=== PATIENT | female | born 1995 | race American Indian/Alaskan Native ===

== ENCOUNTER 2020-12-15 17:44 | Emergency (ER) | payer SELFPAY ==
[~2020-12-15 17:44] MED LIST: HYDROmorphone 1 MG/1 ML INJ IV ONE
--- NOTE | 2020-12-15 18:37 | Event Note ---
ED Screening Note ED Screening Note: Patient is a 25-year-old female presents emergency room with complaints of a fall down 13 steps that occurred just prior to arrival She states that she was in a [place] and believes she just tripped and fell She is complaining of left middle finger pain and nail avulsion, left ankle pain and right upper quadrant abdominal pain She is unsure if she hit her head pmhx HIV No allergies to medications Patient appears drowsy on exam I asked patient if she had anything to drink or uses any drugs and she states no She is able to answer questions but is drowsy This initial assessment/diagnostic orders/clinical plan/treatment(s) is/are subject to change based on patients health status, clinical progression and re- assessment by fellow clinical providers in the ED. Further treatment and workup at subsequent clinical providers discretion. Patient/guardian urged not to elope from the ED as their condition may be serious if not clinically assessed and managed. Initial orders include: labs, xr, ct
[2020-12-15] MEDS ORDERED: ONDANSETRON 4 MG/2 ML INJ ONE (18:39)
[2020-12-15] MEDS ORDERED: MORPHINE 4 MG/1 ML INJ ONE (18:40)
[2020-12-15] MEDS ORDERED: SODIUM CHLORIDE 0.9% 1000 ML 1,000 ML IV ONE (18:42)
[2020-12-15 18:50] LABS: Basophils # (Auto) 0.2 K/mm3 (0.0-0.1); Basophils % (Auto) 2.5 % (0.0-1.8); Eosinophils % (Auto) 0.1 % (0.0-4.3); Hematocrit 36.5 % (30.3-42.9); Hemoglobin 12.2 gm/dl (10.1-14.3); Lymphocytes # (Auto) 1.9 K/mm3 (1.2-5.4); Lymphocytes % (Auto) 22.3 % (13.4-35.0); Mean Corpuscular HGB Conc 33 % (30-34); Mean Corpuscular Volume 88 fl (79-97); Monocytes # (Auto) 0.6 K/mm3 (0.0-0.8); Monocytes % (Auto) 6.8 % (0.0-7.3); Platelet Count 242 K/mm3 (140-440); Red Blood Count 4.18 M/mm3 (3.65-5.03); Red Cell Distribution Width 15.9 % (13.2-15.2)
[2020-12-15 19:06] LABS: Alanine Aminotransferase 14 units/L (7-56); Albumin 4.3 g/dL (3.9-5); Blood Urea Nitrogen 12 mg/dL (7-17); Hemolysis Index 2
[2020-12-15 19:07] LABS: BUN/Creatinine Ratio 24
[2020-12-15] MEDS ORDERED: MORPHINE 4 MG/1 ML INJ IV ONE (19:13)
[2020-12-15] MEDS ORDERED: ONDANSETRON 4 MG/2 ML INJ IV ONE (19:13)
[2020-12-15] MEDS ORDERED: BUPIVACAINE/PF (0.25%) 2.5 MG/ML 30 ML VIAL INFILTRATI NR (19:15)
--- NOTE | 2020-12-15 19:18 | Emergency Department Report ---
ED General Adult HPI - General Chief complaint: Multiple Trauma Stated complaint: trauma PUI?: No Time Seen by Provider: 12/15/20 18:32 Source: patient, RN notes reviewed Mode of arrival: Stretcher Limitations: Physical Limitation, Other (Patient anxious and intoxicated) - History of Present Illness Initial comments: The patient was evaluated in the emergency department for symptoms described in the history of present illness. He/she was evaluated in the context of the global COVID-19 pandemic, which necessitated consideration that the patient might be at risk for infection with the virus that causes COVID-19. [facility] protocols and algorithms that pertain to the evaluation of patients at risk for COVID-19 are in a state of rapid change based on information released by regulatory bodies including the CDC and federal and state organizations. These policies and algorithms were followed during the patient's care in the emergency department. Please note that these policies, procedures and recommendations changed on a rapid basis. The patient is a 25-year-old female, who presents to the ER after reported mec hanical fall down 13 stairs. The patient reported that she slipped and lost her footing. The patient is called as a code trauma from the waiting room, secondary to blunt head injury, inability to recall all events, and hypotension. On primary survey: Airway is patent and intact. Breath sounds are clear to auscultation bilaterally. Circulation: 2+ pulses noted in the bilateral upper and lower extremities. Initial blood pressure 70 systolic, repeat blood pressure in the resuscitation bay 120 mmHg systolic. Disability: Patient awake to name, moves 4 extremities, eyes open spontaneously, and is somewhat confused. GCS of 14. Cervical collar placed during primary survey with C-spine immobilization. Exposure: Chaperoned by nurse Fallon Sagastume. No evidence of penetrating injury. Left fingertip injury. Left dorsal lateral foot ecchymosis. Diffuse left leg pain and tenderness. Secondary survey: Left fingertip avulsion injury and partial laceration. Left lateral/dorsal foot ecchymosis and tenderness. Diffuse left leg tenderness. -: Sudden Location: back, abdomen, left, upper extremity, lower extremity Radiation: non-radiation Quality: aching Consistency: constant Improves with: rest Worsens with: movement - Related Data Previous Rx's Medication Instructions Recorded Last Taken Type Acetaminophen [Non-Aspirin Extra 500 mg PO Q6HR PRN #30 tablet 12/16/20 Unknown Rx Strength] Ibuprofen [Motrin] 600 mg PO Q8H PRN #30 tablet 12/16/20 Unknown Rx Morphine Sulfate [Morphine Sulfate 7.5 mg PO Q6HR PRN #10 tablet 12/16/20 Unknown Rx IR] Ondansetron [Zofran Odt] 4 mg PO Q8HR PRN #20 tab.rapdis 12/16/20 Unknown Rx cephALEXin [Keflex] 500 mg PO Q6HR #28 capsule 12/16/20 Unknown Rx Allergies Allergy/AdvReac Type Severity Reaction Status Date / Time No Known Allergies Allergy Verified 12/15/20 18:32 ED Review of Systems ROS: Stated complaint: FINGER/FOOT INJURY Other details as noted in HPI Constitutional: denies: fever Respiratory: denies: cough Cardiovascular: denies: chest pain Gastrointestinal: abdominal pain Musculoskeletal: back pain Skin: lesions Psychiatric: anxiety ED Past Medical Hx - Medications Home Medications: Home Medications Medication Instructions Recorded Confirmed Last Taken Type Acetaminophen [Non-Aspirin Extra 500 mg PO Q6HR PRN #30 tablet 12/16/20 Unknown Rx Strength] Ibuprofen [Motrin] 600 mg PO Q8H PRN #30 tablet 12/16/20 Unknown Rx Morphine Sulfate [Morphine Sulfate 7.5 mg PO Q6HR PRN #10 tablet 12/16/20 Unknown Rx IR] Ondansetron [Zofran Odt] 4 mg PO Q8HR PRN #20 tab.rapdis 12/16/20 Unknown Rx cephALEXin [Keflex] 500 mg PO Q6HR #28 capsule 12/16/20 Unknown Rx ED Physical Exam - General Limitations: Physical Limitation General appearance: appears intoxicated, anxious - Head Head exam: Present: atraumatic, normocephalic - Eye Eye exam: Present: normal appearance, PERRL, EOMI. Absent: nystagmus - ENT ENT exam: Present: normal exam, normal orophraynx, mucous membranes moist, TM's normal bilaterally, normal external ear exam, other (There is no nasal septal hematoma. There is no hemotympanum) - Neck Neck exam: Present: normal inspection, other (Cervical collar is in place.) - Respiratory Respiratory exam: Present: normal lung sounds bilaterally. Absent: respiratory distress, wheezes, rales, rhonchi, stridor, decreased breath sounds - Cardiovascular Cardiovascular Exam: Present: regular rate, normal rhythm, normal heart sounds. Absent: bradycardia, tachycardia, irregular rhythm, systolic murmur, diastolic murmur, rubs, gallop - GI/Abdominal GI/Abdominal exam: Present: soft, tenderness. Absent: distended, guarding, rebound, rigid, pulsatile mass - Rectal Rectal exam: Present: normal inspection, normal rectal tone, other (Chaperoned by nurse Fallon Sagastume) - External exam: Present: normal external exam - Extremities Exam Extremities exam: Present: tenderness (There is left lateral foot tenderness. The left leg appears to be shortened and internally rotated. There is diffuse left thigh, left distal lower extremity tenderness), normal capillary refill, other (2+ pulses noted in the bilateral upper and lower extremities. The bilateral upper extremities are nontender, with exception of the left middle finger.) - Back Exam Back exam: Present: normal inspection, paraspinal tenderness. Absent: CVA tenderness (R), CVA tenderness (L) - Neurological Exam Neurological exam: Present: alert, other (No facial droop. Tongue midline. Extraocular movements intact bilaterally. Facial sensation intact to light touch in V1, V2, V3 distribution bilaterally. 5 and a 5 strength in 4 extremities. Sensation intact to light touch in 4 extremities.) - Psychiatric Psychiatric exam: Present: anxious - Skin Skin exam: Present: warm, ecchymosis (There is ecchymosis noted to the dorsal lateral aspect of the left foot.), other (Abrasion, ecchymosis and laceration noted to the dorsal aspect of the left middle finger.) ED Course Vital Signs 12/15/20 12/15/20 12/15/20 18:27 18:42 18:45 Temperature 98.9 F Pulse Rate 69 87 86 Respiratory 12 26 H 20 Rate Blood Pressure 95/56 Blood Pressure 78/38 [Left] O2 Sat by Pulse 98 99 100 Oximetry 12/15/20 12/15/20 12/15/20 18:46 19:53 19:55 Temperature 98.6 F Pulse Rate 70 Respiratory 22 18 16 Rate Blood Pressure 93/57 Blood Pressure 93/57 [Left] O2 Sat by Pulse 100 99 Oximetry 12/15/20 12/15/20 12/15/20 20:01 20:15 20:23 Temperature Pulse Rate 76 70 Respiratory 18 19 18 Rate Blood Pressure 93/57 110/66 Blood Pressure [Left] O2 Sat by Pulse 98 99 Oximetry 12/15/20 12/15/20 12/15/20 20:31 20:45 21:01 Temperature Pulse Rate 77 74 72 Respiratory 13 15 Rate Blood Pressure 103/65 109/73 113/63 Blood Pressure [Left] O2 Sat by Pulse 100 100 100 Oximetry 12/15/20 12/15/20 12/15/20 21:15 21:31 21:45 Temperature Pulse Rate 70 70 74 Respiratory 12 20 14 Rate Blood Pressure 121/61 121/61 121/61 Blood Pressure [Left] O2 Sat by Pulse 100 100 100 Oximetry 12/15/20 12/15/20 12/15/20 22:01 22:15 22:31 Temperature Pulse Rate 76 78 107 H Respiratory 13 10 L 15 Rate Blood Pressure 121/61 121/61 121/61 Blood Pressure [Left] O2 Sat by Pulse 100 Oximetry 12/15/20 12/15/20 12/15/20 22:45 23:01 23:08 Temperature Pulse Rate 84 84 Respiratory 16 12 18 Rate Blood Pressure 121/61 121/61 Blood Pressure [Left] O2 Sat by Pulse Oximetry 12/15/20 12/15/20 12/15/20 23:15 23:31 23:38 Temperature Pulse Rate 86 80 Respiratory 22 13 18 Rate Blood Pressure 121/61 121/61 Blood Pressure [Left] O2 Sat by Pulse Oximetry 12/15/20 12/16/20 12/16/20 23:45 00:01 00:15 Temperature Pulse Rate 86 77 74 Respiratory 13 16 14 Rate Blood Pressure 121/61 121/61 121/61 Blood Pressure [Left] O2 Sat by Pulse Oximetry 12/16/20 12/16/20 12/16/20 00:31 00:42 01:08 Temperature Pulse Rate 76 Respiratory 18 18 Rate Blood Pressure 121/61 96/61 Blood Pressure [Left] O2 Sat by Pulse Oximetry 12/16/20 12/16/20 12/16/20 01:12 01:21 02:10 Temperature 97.6 F Pulse Rate 70 Respiratory 18 18 Rate Blood Pressure 107/72 Blood Pressure 106/69 [Left] O2 Sat by Pulse 100 Oximetry - Reevaluation(s) Reevaluation #1: 12/16/20 00:42 Patient is reassessed. She is now clinically sober. Cervical collar was discontinued. CT scan of the brain, cervical spine, chest abdomen pelvis negative for acute traumatic findings. Patient states she is aware of her pulmonary abnormalities, and reports that she has a history of COPD. She states that she is also aware of her adenopathy. X-ray of the lower extremity demonstrates possible left cuboid fracture. X-ray of the left finger suggests a tuft fracture. She was given pain medication, initially placed in a posterior splint, made nonweightbearing, and instructed to follow-up with orthopedics for a fingertip injury, as well as cuboid injury. Please reference procedure note for left upper extremity injury. Patient did avulse nail from the dorsal aspect of her left middle finger. We will discharge patient with crutches, nonweightbearing status, left upper extremity splint, antibiotics, pain medication. Extensive discussion had regarding return precautions. The patient has articulated understanding. Return precautions are reviewed. All questions answered. In addition, on multiple repeat evaluations, patient drinking without difficulty, and is noted to be playing on [employer] on her cellular phone. In addition, upon final reevaluation, muscular compartments in the upper and lower extremities have soft, and the patient does not have significant pain with passive range of motion. She has point tenderness to the lateral dorsal aspect of her left foot, and point tenderness to her left middle fingertip. She is 5 out of 5 strength in 4 extremities, and sensation is intact to light touch in 4 extremities. She is exhibiting decision-making capacity, and indic ates that her significant other can pick her up. She understands that she will need to follow-up closely with an outpatient primary care doctor and/or orthopedics. She is already aware of CT chest abnormalities, from her prior hospitalization, and will also follow-up with a primary care doctor regarding her adenopathy. 12/16/20 00:47 12/16/20 16:19 - Laceration /Wound Repair Left Medial Distal Finger Wound Location: upper extremity Wound Length (cm): 0 (0.5 cm) Wound's Depth, Shape: irregular, contused tissue Wound Explored: clean Irrigated w/ Saline (ccs): 500 Betadine Prep?: Yes Anesthesia: 0.5% Sensorcaine Volume Anesthetic (ccs): 5 Wound Debrided: minimal Wound Repaired With: sutures Suture Size/Type: 5:0 Number of Sutures: 1 Layer Closure?: No Sterile Dressing Applied?: No Progress: The left middle finger is prepped with typical aseptic fashion. Using a 26-gauge needle, 3 cc of bupivacaine are infiltrated and injected via a thecal block. The patient endorsed persistent pain and sensation at her distal fingertip, and therefore, we converted to a ring block. Subsequent injections were made on the lateral and medial aspect of the middle finger, as well as the dorsal aspect. Each injection was approximately 1 cc of bupivacaine. Even after the ring block, the patient endorsed persistent sensation to pain at the fingertip. Then, the fingertip was soaked in 4% lidocaine for about 20 minutes. The patient then stated that she had some, but not complete analgesia of the fingertip. However, the patient was able to tolerate irrigation. The fingertip was copiously irrigated with sterile saline, and Betadine, 500 cc of sterile saline, at adequate pressure. The fingertip was examined, no foreign bodies were noted, and it appears that the nail is completely avulsed. A single interrupted monofilament 5-0 suture was placed on the medial aspect of the laceration. Then, foil was inserted into the nail crease, to provide a buttress. Xeroform gauze was then applied in a circumferential in the linear fashion to the distal fingertip. Then, 4 x 4 was applied to the fingertip. Then, a finger splint was applied to the fingertip. The patient tolerated the procedure adequately. - Orthopedic Splinting/Casting Injury #1 Side: left Upper Extremity Injury Location: finger Upper Extremity Immobilizer: finger (other) ED Medical Decision Making - Lab Data Result diagrams: 12/15/20 18:42 12/15/20 18:42 Vital Signs 12/15/20 12/15/20 12/15/20 18:27 18:42 18:45 Temperature 98.9 F Pulse Rate 69 87 86 Respiratory 12 26 H 20 Rate Blood Pressure 95/56 Blood Pressure 78/38 [Left] O2 Sat by Pulse 98 99 100 Oximetry 12/15/20 12/15/20 12/15/20 18:46 19:53 19:55 Temperature 98.6 F Pulse Rate 74 Respiratory 22 18 14 Rate Blood Pressure Blood Pressure 93/57 [Left] O2 Sat by Pulse 100 97 Oximetry Lab Results 12/15/20 12/15/20 12/15/20 Range/Units 18:42 18:42 18:42 WBC 8.3 (4.5-11.0) K/mm3 RBC 4.18 (3.65-5.03) M/mm3 Hgb 12.2 (10.1-14.3) gm/dl Hct 36.5 (30.3-42.9) % MCV 88 (79-97) fl MCH 29 (28-32) pg MCHC 33 (30-34) % RDW 15.9 H (13.2-15.2) % Plt Count 242 (140-440) K/mm3 Lymph % (Auto) 22.3 (13.4-35.0) % [place] % (Auto) 6.8 (0.0-7.3) % Eos % (Auto) 0.1 (0.0-4.3) % Baso % (Auto) 2.5 H (0.0-1.8) % Lymph # (Auto) 1.9 (1.2-5.4) K/mm3 [place] # (Auto) 0.6 (0.0-0.8) K/mm3 Eos # (Auto) 0.0 (0.0-0.4) K/mm3 Baso # (Auto) 0.2 H (0.0-0.1) K/mm3 Seg Neutrophils % 68.3 (40.0-70.0) % Seg Neutrophils # 5.7 (1.8-7.7) K/mm3 PT 15.4 H (12.2-14.9) Sec. INR 1.17 H (0.87-1.13) APTT 33.5 (24.2-36.6) Sec. Sodium 137 (137-145) mmol/L Potassium 3.5 L (3.6-5.0) mmol/L Chloride 103.3 (98-107) mmol/L Carbon Dioxide 23 (22-30) mmol/L Anion Gap 14 mmol/L BUN 12 (7-17) mg/dL Creatinine 0.5 L (0.6-1.2) mg/dL Estimated GFR > 60 ml/min BUN/Creatinine Ratio 24 % Glucose 120 H (65-100) mg/dL Calcium 9.0 (8.4-10.2) mg/dL Total Bilirubin 0.50 (0.1-1.2) mg/dL AST 22 (5-40) units/L ALT 14 (7-56) units/L Alkaline Phosphatase 47 (35-129) units/L Total Protein 8.7 H (6.3-8.2) g/dL Albumin 4.3 (3.9-5) g/dL Albumin/Globulin Ratio 1.0 % HCG, Qual (Negative) Salicylates (2.8-20.0) mg/dL Acetaminophen (10.0-30.0) ug/mL Plasma/Serum Alcohol (0-0.07) % 12/15/20 12/15/20 12/15/20 Range/Units 18:42 18:42 18:42 WBC (4.5-11.0) K/mm3 RBC (3.65-5.03) M/mm3 Hgb (10.1-14.3) gm/dl Hct (30.3-42.9) % MCV (79-97) fl MCH (28-32) pg MCHC (30-34) % RDW (13.2-15.2) % Plt Count (140-440) K/mm3 Lymph % (Auto) (13.4-35.0) % [place] % (Auto) (0.0-7.3) % Eos % (Auto) (0.0-4.3) % Baso % (Auto) (0.0-1.8) % Lymph # (Auto) (1.2-5.4) K/mm3 [place] # (Auto) (0.0-0.8) K/mm3 Eos # (Auto) (0.0-0.4) K/mm3 Baso # (Auto) (0.0-0.1) K/mm3 Seg Neutrophils % (40.0-70.0) % Seg Neutrophils # (1.8-7.7) K/mm3 PT (12.2-14.9) Sec. INR (0.87-1.13) APTT (24.2-36.6) Sec. Sodium (137-145) mmol/L Potassium (3.6-5.0) mmol/L Chloride (98-107) mmol/L Carbon Dioxide (22-30) mmol/L Anion Gap mmol/L BUN (7-17) mg/dL Creatinine (0.6-1.2) mg/dL Estimated GFR ml/min BUN/Creatinine Ratio % Glucose (65-100) mg/dL Calcium (8.4-10.2) mg/dL Total Bilirubin (0.1-1.2) mg/dL AST (5-40) units/L ALT (7-56) units/L Alkaline Phosphatase (35-129) units/L Total Protein (6.3-8.2) g/dL Albumin (3.9-5) g/dL Albumin/Globulin Ratio % HCG, Qual (Negative) Salicylates < 0.3 L (2.8-20.0) mg/dL Acetaminophen 5.0 L (10.0-30.0) ug/mL Plasma/Serum Alcohol < 0.01 (0-0.07) % 12/15/20 Range/Units 18:42 WBC (4.5-11.0) K/mm3 RBC (3.65-5.03) M/mm3 Hgb (10.1-14.3) gm/dl Hct (30.3-42.9) % MCV (79-97) fl MCH (28-32) pg MCHC (30-34) % RDW (13.2-15.2) % Plt Count (140-440) K/mm3 Lymph % (Auto) (13.4-35.0) % [place] % (Auto) (0.0-7.3) % Eos % (Auto) (0.0-4.3) % Baso % (Auto) (0.0-1.8) % Lymph # (Auto) (1.2-5.4) K/mm3 [place] # (Auto) (0.0-0.8) K/mm3 Eos # (Auto) (0.0-0.4) K/mm3 Baso # (Auto) (0.0-0.1) K/mm3 Seg Neutrophils % (40.0-70.0) % Seg Neutrophils # (1.8-7.7) K/mm3 PT (12.2-14.9) Sec. INR (0.87-1.13) APTT (24.2-36.6) Sec. Sodium (137-145) mmol/L Potassium (3.6-5.0) mmol/L Chloride (98-107) mmol/L Carbon Dioxide (22-30) mmol/L Anion Gap mmol/L BUN (7-17) mg/dL Creatinine (0.6-1.2) mg/dL Estimated GFR ml/min BUN/Creatinine Ratio % Glucose (65-100) mg/dL Calcium (8.4-10.2) mg/dL Total Bilirubin (0.1-1.2) mg/dL AST (5-40) units/L ALT (7-56) units/L Alkaline Phosphatase (35-129) units/L Total Protein (6.3-8.2) g/dL Albumin (3.9-5) g/dL Albumin/Globulin Ratio % HCG, Qual Negative (Negative) Salicylates (2.8-20.0) mg/dL Acetaminophen (10.0-30.0) ug/mL Plasma/Serum Alcohol (0-0.07) % - Radiology Data Radiology results: pending, report reviewed, image reviewed Left femur radiograph, 4 views HISTORY: Pain COMPARISON: None FINDINGS: No acute fracture or malalignment. No focal soft tissue abnormality. IMPRESSION: No acute process Signer Name: Geo Leal MD Signed: 12/15/2020 8:22 PM AP PELVIS SINGLE VIEW INDICATION / CLINICAL INFORMATION: left hip, leg pain. COMPARISON: None available. FINDINGS: AP view of the pelvis is unremarkable. No pelvic fracture. Both hips appear intact. Contrast is present within the urinary bladder from prior CT. IMPRESSION: No pelvic fracture. Signer Name: Elizabeth Yousif MD Signed: 12/15/2020 8:23 PM Workstation Name: [id number] Left tibia-fibula radiograph, 2 views HISTORY: Pain COMPARISON: None FINDINGS: No acute fracture or malalignment. No focal soft tissue abnormality. IMPRESSION: No acute process Signer Name: Geo Leal MD Signed: 12/15/2020 8:21 PM Workstation Name: [id number] CT chest w con, CT abdomen pelvis w con INDICATION / CLINICAL INFORMATION: fall down 13 steps. TECHNIQUE: Axial CT images were obtained through the chest, abdomen, pelvis after IV contrast. All CT scans at this location are performed using CT dose reduction for ALARA by means of automated exposure control. COMPARISON: None available. FINDINGS: CHEST: THORACIC AORTA: No significant abnormality. PULMONARY ARTERIES: No gross pulmonary embolus. HEART: No significant abnormality. MEDIASTINUM / DAYANARA: No significant abnormality. No significant thoracic lymphadenopathy. LUNGS/PLEURA: Multiple lung cysts are present with large areas of geographic lucency within the lingula and right middle lobe and bilateral lung bases, may reflect air trapping. There is scarring in the right upper lung. No acute airspace consolidation. No pleural effusion or pneumothorax. OTHER FINDINGS: Shotty bilateral prominent axillary lymph nodes, likely reactive. ABDOMEN/PELVIS: LIVER: No significant abnormality GALLBLADDER/BILIARY TREE: No significant abnormality PANCREAS: No significant abnormality SPLEEN: No significant abnormality ADRENALS: No significant abnormality KIDNEYS / URETER: No significant abnormality URINARY BLADDER: No significant abnormality REPRODUCTIVE ORGANS: No significant abnormality STOMACH / BOWEL: No significant abnormality. The appendix is normal in caliber. LYMPH NODES: No significant adenopathy. VASCULATURE: No significant abnormality. OTHER: No free air, free fluid, or focal fluid collection is identified. SKELETAL SYSTEM: No acute osseous findings. IMPRESSION: 1. No evidence of acute traumatic abnormality of the chest, abdomen, or pelvis. 2. Multiple thin-walled lung cysts with large areas of geographic lucency seen throughout the lungs, may reflect air trapping. These findings are somewhat nonspecific though may be seen with lymphangiole iomyomatosis or less likely lymphocytic interstitial pneumonitis. Consider nonemergent pulmonary consultation, as clinically indicated. 3. Other incidental findings as above. Signer Name: Geo Leal MD Signed: 12/15/2020 7:16 PM Workstation Name: [id number] CT cervical spine wo con INDICATION / CLINICAL INFORMATION: 25 years Female; fall down 13 steps. TECHNIQUE: Axial CT images of the cervical spine were obtained. Sagittal and coronal reformatted images were produced. All CT scans at this location are performed using CT dose reduction for ALARA by means of automated exposure control. COMPARISON: None available. FINDINGS: POST- SURGICAL CHANGES: None. ALIGNMENT: There is no significant spondylolisthesis involving cervical spine at. VERTEBRAE: There is no CT evidence of acute fracture. INTRAVERTEBRAL DISCS: The intervertebral disc spaces are fairly well- maintained without CT evidence of significant bony spinal stenosis. PARASPINAL SOFT TISSUES: No prevertebral soft tissue fluid collections are identified. There are multiple cervical lymph nodes including within the supraclavicular regions and along the jugular chains with the largest measuring approximately 0.8 cm in short axis dimension. These nodes are nonspecific and correlation would be needed at. There are fibrotic changes involving visualized upper lungs with multiple small bullae. ADDITIONAL FINDINGS: None. IMPRESSION: 1. There is no CT evidence of acute fracture involving cervical spine. 2. There are multiple scattered cervical lymph nodes as described which are nonspecific and correlation would be needed. Signer Name: David Geronimo MD Signed: 12/15/2020 7:12 PM Workstation Name: [id number] CT head/brain wo con INDICATION / CLINICAL INFORMATION: 25 years Female; fall down 13 steps. TECHNIQUE: Routine CT head without contrast. All CT scans at this location are performed using CT dose reduction for ALARA by means of automated exposure control. COMPARISON: None. FINDINGS: BRAIN / INTRACRANIAL CONTENTS: The brain parenchyma appears to demonstrate appropriate attenuation. The ventricular system is within normal limits in size and configuration. There is no clear CT evidence of acute intracranial hemorrhage or significant mass effect. ORBITS: No significant abnormality of visualized orbits. SINUSES / MASTOIDS: No significant abnormality in the visualized paranasal sinuses or mastoid air cells. CRANIOCERVICAL JUNCTION: No significant abnormality. ADDITIONAL FINDINGS: None. IMPRESSION: 1. There is no CT evidence of acute intracranial process. Signer Name: David Geronimo MD Signed: 12/15/2020 7:07 PM Workstation Name: [id number] XR foot 3+V LT INDICATION / CLINICAL INFORMATION: fall down 13 steps, left lateral ankle pain COMPARISON: None available. FINDINGS: There is cortical irregularity involving the lateral aspect of the cuboid, suspicious for fracture. No additional fracture is identified. No joint malalignment. Lisfranc interval is preserved. IMPRESSION: Acute fracture of the cuboid. Signer Name: Geo Leal MD Signed: 12/15/2020 8:23 PM Left hand radiograph, 3 views HISTORY: Fall COMPARISON: None FINDINGS: There is an acute comminuted fracture of the terminal tuft of the left middle finger. No additional fracture. No joint malalignment. Soft tissue injury of the distal tip of the middle finger. IMPRESSION: Acute comminuted fracture of the terminal tuft of the left middle finger. Signer Name: Geo Leal MD Signed: 12/15/2020 8:25 PM Workstation Name: [id number] - Medical Decision Making Differential diagnosis, including but not limited to: Closed head injury, cervical spine injury, intrathoracic injury, intra-abdominal injury, left hand/fingertip injury, left foot injury, left lower extremity injury Assessment and plan: 25-year-old female, who initially presents as a code trauma, awake, but confused, with concern for clinical intoxication and hypotension, immediately brought back to resuscitation bay, primary and secondary survey were completed expediently. Given mechanism of injury, undifferentiated hypotension, confusion, place patient on corporate responsibility officer, obtain 2 large-bore IVs, cervical collar placed with C-spine precautions and immobilization during primary survey, appropriate laboratory studies sent, pain medication and tetanus vaccination ordered. Obtain CT scan of the brain, cervical spine, chest abdomen pelvis. Obtain appropriate x-ray survey. Treat patient's pain aggressively. Reassess after initial data points. Critical care attestation.: If time is entered above; I have spent that time in minutes in the direct care of this critically ill patient, excluding procedure time. ED Disposition Clinical Impression: Fall, Closed head injury, Back pain, Abdominal pain, Left leg pain, Left foot pain, Injury of left middle finger Disposition: 01 HOME / SELF CARE / HOMELESS Is pt being admited?: No Does the pt Need Aspirin: No Condition: Good Instructions: Tarsal Navicular Fracture, Finger Fracture, Adult, Laceration Care, Adult Additional Instructions: As we discussed, pain typically gets worse before gets better after blunt trauma. Pain will typically get worse over the next few days. Use the crutches as directed, keep the splint on the left middle finger, and left lower extremity as instructed. Remain nonweightbearing on the left lower extremity. We recommend follow-up with an orthopedic physician within the next [address] Romero is a local orthopedic physician. [facility] is a local orthopedic group. Patient should take the prescribed pain medication and antibiotics as needed/directed. Please make certain to not miss any antibiotic dose. It is especially important to follow-up with an orthopedic/hand physician for your left upper extremity injury, to make certain that wound is healing well, and that nails are growing back appropriately. Please return to the emergency room right away with redness, pus, streaking, significant pain not improved by pain medication, weakness, numbness, confusion, projectile vomiting, or any new, worsened or different symptoms not present on the initial emergency room evaluation. We recommend that the patient rest, and avoid heavy lifting. Prescriptions: cephALEXin [Keflex] 500 mg PO Q6HR #28 capsule Morphine Sulfate [Morphine Sulfate IR] 7.5 mg PO Q6HR PRN #10 tablet PRN Reason: Pain , Severe (7-10) Ibuprofen [Motrin] 600 mg PO Q8H PRN #30 tablet PRN Reason: Pain Acetaminophen [Non-Aspirin Extra Strength] 500 mg PO Q6HR PRN #30 tablet PRN Reason: Pain , Severe (7-10) Ondansetron [Zofran Odt] 4 mg PO Q8HR PRN #20 tab.rapdis PRN Reason: Nausea Referrals: FABIANO ROMERO MD [Staff Physician] - 3-[address] [facility] [Provider Group] - 3-5 Days Forms: Work/School Release Form(ED)
[2020-12-15 19:50] LABS: INR 1.17 (0.87-1.13); Partial Thromboplastin Time 33.5 Sec. (24.2-36.6)
[2020-12-15] MEDS ORDERED: HYDROmorphone 1 MG/1 ML INJ IV ONE (19:50)
--- NOTE | 2020-12-15 20:21 | Cat Scan Report ---
CT head/brain wo con INDICATION / CLINICAL INFORMATION: 25 years Female; fall down 13 steps. TECHNIQUE: Routine CT head without contrast. All CT scans at this location are performed using CT dos e reduction for ALARA by means of automated exposure control. COMPARISON: None. FINDINGS: BRAIN / INTRACRANIAL CONTENTS: The brain parenchyma appears to demonstrate appropriate attenuation. T he ventricular system is within normal limits in size and configuration. There is no clear CT evidenc e of acute intracranial hemorrhage or significant mass effect. ORBITS: No significant abnormality of visualized orbits. SINUSES / MASTOIDS: No significant abnormality in the visualized paranasal sinuses or mastoid air radha ls. CRANIOCERVICAL JUNCTION: No significant abnormality. ADDITIONAL FINDINGS: None. IMPRESSION: 1. There is no CT evidence of acute intracranial process. Signer Name: David Geronimo MD Signed: 12/15/2020 8:07 PM Workstation Name: [id number]
--- NOTE | 2020-12-15 20:21 | Cat Scan Report ---
CT cervical spine wo con INDICATION / CLINICAL INFORMATION: 25 years Female; fall down 13 steps. TECHNIQUE: Axial CT images of the cervical spine were obtained. Sagittal and coronal reformatted images were pr oduced. All CT scans at this location are performed using CT dose reduction for ALARA by means of aut omated exposure control. COMPARISON: None available. FINDINGS: POST-SURGICAL CHANGES: None. ALIGNMENT: There is no significant spondylolisthesis involving cervical spine at. VERTEBRAE: There is no CT evidence of acute fracture. INTRAVERTEBRAL DISCS: The intervertebral disc spaces are fairly well-maintained without CT evidence o f significant bony spinal stenosis. PARASPINAL SOFT TISSUES: No prevertebral soft tissue fluid collections are identified. There are mult iple cervical lymph nodes including within the supraclavicular regions and along the jugular chains w ith the largest measuring approximately 0.8 cm in short axis dimension. These nodes are nonspecific a nd correlation would be needed at. There are fibrotic changes involving visualized upper lungs with m ultiple small bullae. ADDITIONAL FINDINGS: None. IMPRESSION: 1. There is no CT evidence of acute fracture involving cervical spine. 2. There are multiple scattered cervical lymph nodes as described which are nonspecific and correlati on would be needed. Signer Name: David Geronimo MD Signed: 12/15/2020 8:12 PM Workstation Name: [id number]
--- NOTE | 2020-12-15 20:21 | Cat Scan Report ---
CT chest w con, CT abdomen pelvis w con INDICATION / CLINICAL INFORMATION: fall down 13 steps. TECHNIQUE: Axial CT images were obtained through the chest, abdomen, pelvis after IV contrast. All CT scans at t his location are performed using CT dose reduction for ALARA by means of automated exposure control. COMPARISON: None available. FINDINGS: CHEST: THORACIC AORTA: No significant abnormality. PULMONARY ARTERIES: No gross pulmonary embolus. HEART: No significant abnormality. MEDIASTINUM / DAYANARA: No significant abnormality. No significant thoracic lymphadenopathy. LUNGS/PLEURA: Multiple lung cysts are present with large areas of geographic lucency within the lingu la and right middle lobe and bilateral lung bases, may reflect air trapping. There is scarring in the right upper lung. No acute airspace consolidation. No pleural effusion or pneumothorax. OTHER FINDINGS: Shotty bilateral prominent axillary lymph nodes, likely reactive. ABDOMEN/PELVIS: LIVER: No significant abnormality GALLBLADDER/BILIARY TREE: No significant abnormality PANCREAS: No significant abnormality SPLEEN: No significant abnormality ADRENALS: No significant abnormality KIDNEYS / URETER: No significant abnormality URINARY BLADDER: No significant abnormality REPRODUCTIVE ORGANS: No significant abnormality STOMACH / BOWEL: No significant abnormality. The appendix is normal in caliber. LYMPH NODES: No significant adenopathy. VASCULATURE: No significant abnormality. OTHER: No free air, free fluid, or focal fluid collection is identified. SKELETAL SYSTEM: No acute osseous findings. IMPRESSION: 1. No evidence of acute traumatic abnormality of the chest, abdomen, or pelvis. 2. Multiple thin-walled lung cysts with large areas of geographic lucency seen throughout the lungs, may reflect air trapping. These findings are somewhat nonspecific though may be seen with lymphangiol eiomyomatosis or less likely lymphocytic interstitial pneumonitis. Consider nonemergent pulmonary con sultation, as clinically indicated. 3. Other incidental findings as above. Signer Name: Geo Leal MD Signed: 12/15/2020 8:16 PM Workstation Name: [id number]
[2020-12-15] MEDS ORDERED: TETANUS,DIPH,PERTUSS(ACELL) VACCINE 0.5 ML SYRINGE IM ONE ×2 (20:27→23:50)
--- NOTE | 2020-12-15 21:25 | XRay Report ---
Left tibia-fibula radiograph, 2 views HISTORY: Pain COMPARISON: None FINDINGS: No acute fracture or malalignment. No focal soft tissue abnormality. IMPRESSION: No acute process Signer Name: Geo Leal MD Signed: 12/15/2020 9:21 PM Workstation Name: [id number]
--- NOTE | 2020-12-15 21:26 | XRay Report ---
Left femur radiograph, 4 views HISTORY: Pain COMPARISON: None FINDINGS: No acute fracture or malalignment. No focal soft tissue abnormality. IMPRESSION: No acute process Signer Name: Geo Leal MD Signed: 12/15/2020 9:22 PM Workstation Name: [id number]
--- NOTE | 2020-12-15 21:27 | XRay Report ---
AP PELVIS SINGLE VIEW INDICATION / CLINICAL INFORMATION: left hip, leg pain. COMPARISON: None available. FINDINGS: AP view of the pelvis is unremarkable. No pelvic fracture. Both hips appear intact. Contrast is present within the urinary bladder from prior CT. IMPRESSION: No pelvic fracture. Signer Name: Elizabeth Yousif MD Signed: 12/15/2020 9:23 PM Workstation Name: [id number]
--- NOTE | 2020-12-15 21:28 | XRay Report ---
. XR foot 3+V LT INDICATION / CLINICAL INFORMATION: fall down 13 steps, left lateral ankle pain COMPARISON: None available. FINDINGS: There is cortical irregularity involving the lateral aspect of the cuboid, suspicious for f racture. No additional fracture is identified. No joint malalignment. Lisfranc interval is preserved. IMPRESSION: Acute fracture of the cuboid. Signer Name: Geo Leal MD Signed: 12/15/2020 9:23 PM Workstation Name: [id number]
--- NOTE | 2020-12-15 21:29 | XRay Report ---
Left hand radiograph, 3 views HISTORY: Fall COMPARISON: None FINDINGS: There is an acute comminuted fracture of the terminal tuft of the left middle finger. No ad ditional fracture. No joint malalignment. Soft tissue injury of the distal tip of the middle finger. IMPRESSION: Acute comminuted fracture of the terminal tuft of the left middle finger. Signer Name: Geo Leal MD Signed: 12/15/2020 9:25 PM Workstation Name: [id number]
[2020-12-15] MEDS ORDERED: SODIUM CHLORIDE 0.9% IRR 500 ML BOTTLE IR ONE (21:59)
[2020-12-15] MEDS ORDERED: KETOROLAC 30 MG/1 ML INJ IV ONE (22:11)
[2020-12-15] MEDS ORDERED: cephALEXin ORAL LIQD 500 MG/10 ML ORAL LIQD PO NR (22:11)
[2020-12-15] MEDS ORDERED: LIDOCAINE (4%) 40 MG/ML TOPICAL SOLN 50 ML BOTTLE TP ONE (22:38)
[2020-12-16] MEDS ORDERED: HYDROmorphone 1 MG/1 ML INJ IV ONE (00:25)
[2020-12-16] MEDS ORDERED: LACTATED RINGERS 1,000 ML IV ONE (00:46)
[2020-12-16 02:37] VITALS: BP 106/69
== END 2020-12-16 02:10 | disposition home or self-care (01) ==
LOC: ED 17:44
DX: S69.92XA Unspecified injury of left wrist, hand and finger(s), initial encounter (principal); S09.90XA Unspecified injury of head, initial encounter; M54.9 Dorsalgia, unspecified; R10.9 Unspecified abdominal pain; M79.605 Pain in left leg; M25.572 Pain in left ankle and joints of left foot; Z79.899 Other long term (current) drug therapy; W18.30XA Fall on same level, unspecified, initial encounter; Y93.89 Activity, other specified; Y92.89 Other specified places as the place of occurrence of the external cause; Y99.8 Other external cause status
CPT/HCPCS: 12001; 29130; 36415; 70450; 71260; 72125; 72170; 73130; 73552; 73590; 73630; 74177; 80053; 84703; 85025; 85610; 85730; 90471; 90715; 96361; 96374; 96376; 99284; J1170; J1885; J2270; J2405; J7030; J7120; Q9967; 80320; G0480

== ENCOUNTER 2020-12-18 14:58 | Emergency (ER) | payer SELFPAY ==
--- NOTE | 2020-12-18 16:44 | Emergency Department Report ---
ED Lower Extremity HPI - General Chief Complaint: Extremity Injury, Lower Stated Complaint: SEEN 12/15/20 FOOT SWOLLEN/FINGER BLEEDING Time Seen by Provider: 12/18/20 16:32 Source: patient Mode of arrival: Ambulatory Limitations: No Limitations - History of Present Illness Initial Comments: Patient presented secondary to foot pain on the left as well as a wound check on the left middle finger. She states that she was seen here recently and had broken her foot. She was referred to Ortho but was told that "she was not in their system." She came in today because her foot was more swollen. She reported increasing pain. She is having pain that hurts all the way up "into her hip." The pain is sharp and stabbing. She states that she has some numb ness in her toes. She did not know what else to do. She does report that the dressing on the left middle finger keeps sticking to her finger. It has been oozing. She is not certain if it is infected. She does report these these injuries were sustained from a fall. The pain in the foot is constant and aching. - Related Data Previous Rx's Medication Instructions Recorded Last Taken Type Acetaminophen [Non-Aspirin Extra 500 mg PO Q6HR PRN #30 tablet 12/16/20 Unknown Rx Strength] Ibuprofen [Motrin] 600 mg PO Q8H PRN #30 tablet 12/16/20 Unknown Rx Morphine Sulfate [Morphine Sulfate 7.5 mg PO Q6HR PRN #10 tablet 12/16/20 Unknown Rx IR] Ondansetron [Zofran Odt] 4 mg PO Q8HR PRN #20 tab.rapdis 12/16/20 Unknown Rx cephALEXin [Keflex] 500 mg PO Q6HR #28 capsule 12/16/20 Unknown Rx Allergies Allergy/AdvReac Type Severity Reaction Status Date / Time No Known Allergies Allergy Verified 12/18/20 16:42 ED Review of Systems ROS: Stated complaint: SEEN 12/15/20 FOOT SWOLLEN/FINGER BLEEDING Other details as noted in HPI Comment: All other systems reviewed and negative Constitutional: denies: fever Eyes: denies: eye pain ENT: denies: throat pain Respiratory: denies: cough Cardiovascular: denies: chest pain Endocrine: denies: unexplained weight loss Gastrointestinal: denies: abdominal pain Genitourinary: denies: dysuria Musculoskeletal: denies: back pain Skin: denies: rash Neurological: denies: headache Hematological/Lymphatic: denies: swollen glands ED Past Medical Hx - Past Medical History Previous Medical History?: No - Surgical History Past Surgical History?: No - Social History Smoking Status: Unknown if ever smoked - Medications Home Medications: Home Medications Medication Instructions Recorded Confirmed Last Taken Type Acetaminophen [Non-Aspirin Extra 500 mg PO Q6HR PRN #30 tablet 12/16/20 Unknown Rx Strength] Ibuprofen [Motrin] 600 mg PO Q8H PRN #30 tablet 12/16/20 Unknown Rx Morphine Sulfate [Morphine Sulfate 7.5 mg PO Q6HR PRN #10 tablet 12/16/20 Unknown Rx IR] Ondansetron [Zofran Odt] 4 mg PO Q8HR PRN #20 tab.rapdis 12/16/20 Unknown Rx cephALEXin [Keflex] 500 mg PO Q6HR #28 capsule 12/16/20 Unknown Rx ED Physical Exam - General Limitations: No Limitations General appearance: alert, in distress (Moderate discomfort) - Head Head exam: Present: atraumatic, normocephalic, normal inspection - Eye Eye exam: Present: normal appearance, EOMI. Absent: scleral icterus - ENT ENT exam: Present: normal exam, normal orophraynx - Neck Neck exam: Present: normal inspection, full ROM. Absent: meningismus - Respiratory Respiratory exam: Absent: respiratory distress - Cardiovascular Cardiovascular Exam: Present: other (Normal pulses in the dorsalis pedis areas) - GI/Abdominal GI/Abdominal exam: Present: other (Flat) - Extremities Exam Extremities exam: Present: pedal edema (Left foot), other (Wounds on the left middle finger are well-healing and intact. There is no secondary infection noted. Patient has tenderness with diffuse palpation over the left foot and the dorsal aspect. Pulses are equal and symmetric. There is significant edema and ecchymoses noted. There is no malleolar ten) - Neurological Exam Neurological exam: Present: alert, oriented X3. Absent: motor sensory deficit - Psychiatric Psychiatric exam: Present: normal affect, normal mood - Skin Skin exam: Present: warm, dry ED Course Vital Signs 12/18/20 16:37 Temperature 98.9 F Pulse Rate 89 Blood Pressure 127/89 - Reevaluation(s) Reevaluation #1: 12/18/20 16:49 Patient was seen as above and discharged ED Lower Extremity MDM - Medical Decision Making Patient presents with multiple issues regarding recent wounds. She was concern for wound infection the left middle finger, of which there is none. Nonstick dressing has been applied and a splint has been reapplied. She was also concerned about swelling in the foot and pain in the foot. There is no evidence of compartment syndrome. She does not have pain out of proportion to exam. There is no pulselessness. There is no pallor. She admits freely that she has not been elevating and not been icing her foot. I have had a long discussion with her about this symptomatic treatment. She is referred back to Ortho. Critical Care Time: No Critical care attestation.: If time is entered above; I have spent that time in minutes in the direct care of this critically ill patient, excluding procedure time. ED Disposition Clinical Impression: Visit for wound check, Left foot pain Navicular fracture of ankle Qualifiers: Encounter type: subsequent encounter Fracture type: closed Fracture alignment: displaced Laterality: left Fracture healing: with routine healing Qualified Code(s): S92.252D - Displaced fracture of navicular [scaphoid] of left foot, subsequent encounter for fracture with routine healing Disposition: 01 HOME / SELF CARE / HOMELESS Is pt being admited?: No Does the pt Need Aspirin: No Condition: Stable Instructions: Tarsal Navicular Fracture, Cast or Splint Care, Adult, [id number] Additional Instructions: Ice and elevate the broken bones and extremities. Wear the splints. Keep the wounds clean. Return for problems. Follow-up with your regular doctor for recheck. Referrals: FABIANO EDWARDS MD [Staff Physician] - 3-5 Days
[2020-12-18] MEDS ORDERED: HYDROcodone/ACETAMINOPHEN 5-325 MG TAB PO ONE (17:51)
[2020-12-18 19:36] VITALS: BP 127/79
== END 2020-12-18 19:35 | disposition home or self-care (01) ==
LOC: ED 14:58
DX: S92.252D Displaced fracture of navicular [scaphoid] of left foot, subsequent encounter for fracture with routine healing (principal); M79.645 Pain in left finger(s); Z79.899 Other long term (current) drug therapy; X58.XXXD Exposure to other specified factors, subsequent encounter
CPT/HCPCS: 99282; 99283

== ENCOUNTER 2021-03-01 10:41 | Emergency (ER) | payer OTHER ==
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
[2021-03-01] MEDS ORDERED: ONDANSETRON 4 MG/2 ML INJ IV ONE (11:33)
[2021-03-01] MEDS ORDERED: MORPHINE 4 MG/1 ML INJ IV ONE (11:33)
[2021-03-01] MEDS ORDERED: SODIUM CHLORIDE 0.9% 1000 ML 1,000 ML IV ONE (11:33)
[2021-03-01] MEDS ORDERED: HYDROmorphone 1 MG/1 ML INJ IV ONE ×2 (12:14→13:53)
[2021-03-01 12:38] LABS: Basophils % (Auto) 0.4 % (0.0-1.8); Eosinophils # (Auto) 0.1 K/mm3 (0.0-0.4); Eosinophils % (Auto) 1.7 % (0.0-4.3); Hematocrit 29.4 % (30.3-42.9); Hemoglobin 9.4 gm/dl (10.1-14.3); Lymphocytes # (Auto) 1.1 K/mm3 (1.2-5.4); Lymphocytes % (Auto) 35.6 % (13.4-35.0); Mean Corpuscular HGB Conc 32 % (30-34); Mean Corpuscular Volume 86 fl (79-97); Monocytes # (Auto) 0.3 K/mm3 (0.0-0.8); Platelet Count 142 K/mm3 (140-440); Red Blood Count 3.41 M/mm3 (3.65-5.03); Red Cell Distribution Width 16.2 % (13.2-15.2)
[2021-03-01 12:48] LABS: INR 1.12 (0.87-1.13)
[2021-03-01 13:00] LABS: Alanine Aminotransferase 12 units/L (7-56); Albumin 3.6 g/dL (3.9-5); Blood Urea Nitrogen 8 mg/dL (7-17); Calcium 8.2 mg/dL (8.4-10.2); Hemolysis Index 1
[2021-03-01] MEDS ORDERED: POTASSIUM CHLORIDE ER 20 MEQ TAB PO ONE (13:05)
[2021-03-01 13:28] LABS: BUN/Creatinine Ratio 27
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
[2021-03-01] MEDS ORDERED: KETOROLAC 30 MG/1 ML INJ IV ONE (16:02)
[2021-03-01] MEDS ORDERED: METOCLOPRAMIDE 10 MG/2 ML INJ IV ONE (17:29)
[2021-03-01] MEDS ORDERED: METOCLOPRAMIDE 10 MG/2 ML INJ ONE (17:29)
[2021-03-01 17:35] VITALS: BP 122/79
== END 2021-03-01 18:16 | disposition home or self-care (01) ==
LOC: ED 10:41
DX: S32.030A Wedge compression fracture of third lumbar vertebra, initial encounter for closed fracture (principal); S42.002A Fracture of unspecified part of left clavicle, initial encounter for closed fracture; S32.009A Unspecified fracture of unspecified lumbar vertebra, initial encounter for closed fracture; S09.90XA Unspecified injury of head, initial encounter; S39.92XA Unspecified injury of lower back, initial encounter; R10.9 Unspecified abdominal pain; M54.6 Pain in thoracic spine; R07.89 Other chest pain; E87.6 Hypokalemia; Y99.8 Other external cause status; D64.9 Anemia, unspecified; V49.9XXA Car occupant (driver) (passenger) injured in unspecified traffic accident, initial encounter; Y93.89 Activity, other specified; Y92.89 Other specified places as the place of occurrence of the external cause
CPT/HCPCS: 36415; 70450; 71260; 72128; 72131; 73030; 74177; 80053; 82550; 84484; 84702; 85025; 85610; 93005; 96361; 96374; 96375; 96376; 99284; J1170; J1885; J2270; J2405; J2765; J7030; Q9967; 80320; Q0162; G0480